=== PATIENT | female | born 1955 | race Caucasian/White ===

== ENCOUNTER 2022-09-13 12:17 | Day surgery (SDC) | payer OTHER, MEDICARE, SELFPAY ==
[2022-09-06 10:39] VITALS: BMI 24.3
[2022-09-13] VITALS (11 sets, daily range): BP systolic 116–147; BP diastolic 79–93; PULSE 58–78; RESP 16–19; TEMP 35.9–37.2; O2SAT 95–100; BMI 23.9
--- NOTE | 2022-09-13 06:39 | DI.RAD.S_ITS ---
PROCEDURE: XR HIP W PEL IF DONE LT 2V INDICATIONS: INNER OP TECHNIQUE: 2 view(s) of the hip acquired. COMPARISON: None. FINDINGS: Bones: Patient is status post left hip arthroplasty, with hardware components in expected positions. The hip joint appears congruent. The visualized bony structures appear intact. Soft tissues: Overlying postoperative changes are noted. No suspicious soft tissue densities. IMPRESSION: Expected intraoperative postsurgical change for left hip arthroplasty. Dictated by: Tawny Ernandez MD, PhD on 09/13/2022 at 16:20 Approved by: Tawny Ernandez MD, PhD on 09/13/2022 at 16:21
[2022-09-13] MEDS: ACETAMINOPHEN 325 MG TABLET 975 MG PO (12:51)
[2022-09-13] MEDS: LACTATED RINGERS 1,000 ML 42 ML IV (13:11)
[2022-09-13 13:18] LABS: COVID19 -Nasal RAPID Negative (Negative)
[2022-09-13] MEDS: VANCOMYCIN 1,000 MG/200 ML PIGGYBACK 200 MG IV (13:34)
--- NOTE | 2022-09-13 13:46 | PM.PREOP ---
Pre-operative Note Interval Note History & Physical reviewed/Exam performed by Physician: Yes Changes to H&P: No
--- NOTE | 2022-09-13 13:47 | P.OP_ITS ---
Operative Date/Time/Diagnoses Date of procedure: 09/13/22 Time of procedure: 14:00 Pre-op diagnosis: left hip OA Post-op diagnosis: same Procedure & Clinicians Procedure: left total hip arthroplasty anterior approach Same procedure as scheduled: Yes Indications: The patient has had progressively worsening left hip pain with radiographic ch anges consistent with arthritis. Non-operative management has failed and the patient has requested total hip replacement. The risks, benefits and alternatives to surgery were discussed with the patient prior to proceeding. Risks discussed included, but were not limited to, failure to relieve pain, leg length discrepancy, dislocation, stiffness, infection, nerve damage, deep venous thrombosis, pulmonary embolism, stroke, coma, heart attack, permanent paralysis and , as well as the potential need for eventual revision of the prosthetic. Surgeon: Alicia Hunter Guidance Services Coordinator: Maddy Magallon Anesthesia Type: General and Spinal Operative Notes Findings: severe left hip osteoarthritis, adequate stability Closure Type: primary Specimen(s): none sent Prosthetic devices, grafts, tissues, transplants, or devices: Hunter and nephew anthology standard offset Size 4, 52 mm cup, neutral poly liner 52 x 36, 36+ 0 Oxinium femoral head, one 6.5 mm screw Estimated Blood Loss (mL): 250 Blood products transfused: none Procedure in detail: The patient was brought to the operating room. Patient was carefully positioned in the supine position. Time-out was performed and antibiotics were given. Anesthesia was induced. She was positioned in the on the table in order to allow hyperextension of the hip. The left lower extremity was prepped and draped in a standard sterile fashion. An anterior left hip incision was made 1 fingerbreadth lateral to the anterior superior iliac spine and extended distally towards the greater trochanter. Dissection was carried out through skin and subcutaneous tissues. Superficial hemostasis was achieved. The fascia over the tensor fascia sammie was defined and incised with a knife. Two Allis clamps were used to grasp the fascia. Tensor fascia sammie was retracted laterally. A gelpi retractor was placed. Dissection was carried out down along the neck. The circumflex vessels were carefully identified and cauterized with the Aqua Mantis. There was good visualization of the femoral neck. A Cobra was placed superior to the neck and the gluteus fibers were carefully stripped from that superior aspect of the capsule. A 2nd retractor was placed along the inferior aspect of the neck. The rectus insertion along the capsule was partially released. A 3rd retractor that was then gently placed over the rim of the acetabulum under the rectus. Capsule was carefully incised and released from the intertrochanteric line circumferentially superior to the mid sagittal line and inferiorly to the mid sagittal line until the lesser trochanter was palpable. A tag stitch was placed both in the superior and inferior limb of the capsular insertion. Along the acetabulum capsule was also released up to the mid sagittal 12:00 position. A portion of the labrum was resected. A saw was used to perform an osteotomy at the level of the intertrochanteric line and the junction of the superior femoral neck leaving approximately 1 finger breath of residual inferior neck above the lesser trochanter. A 2nd cut was made along the femoral neck at the base of the head and a napkin ring of neck was removed. Corkscrew was placed in the femoral head and the head was removed without difficulty. Retractors were then repositioned around the acetabulum. Residual labrum was resected and additional osteophytes were removed. A reamer that was 4 mm below the templated size was placed by hand in the acetabulum and it was reamed to centralize the acetabulum. It was then reamed up to 2 under the templated size and fluoroscopy was brought in to confirm the position of the reaming and depth of reaming. I reamed 1 under the anticipated size. A trial cup was placed and noted that it was appropriately sized and fluoroscopy confirmed position and depth. The component was open and inserted without difficulty fluoroscopic imaging was used to confirm that the cup had been adequately seated and was well positioned. it was further stabilized with a single screw. Neutral poly liner was placed. The cup was tested and noted to be stable. Attention was then directed to the femur. The femur was gently hyperextended additional capsular release was performed as needed in order to allow adequate visualization of the proximal femur with elevation of the femur. Patient was placed in a hyperextended slightly adducted position with maximum external rotation. Box osteotome was used to check for any residual neck as well as scle rotic bone along the trochanter. [place] pepper was placed in the femur. Additional broaching was performed. Canal finder was used to determine the alignment of the canal and position. Size 1 broach was placed. The canal was then appropriately broached up to the templated size as long as there was adequate stability of the broach and serial advancement of the broach without excessive impingement. Specific attention was directed at avoiding varus attempting to direct the distal aspect of the broach more anteriorly and avoiding excessive anteversion. Trial reduction showed acceptable range of mot ion, good stability, no posterior impingement, religious of leg length and appropriate lateral shuck. I also hyperflexed the hip and checked that there was no impingement anteriorly and there was good stability with flexion, adduction and internal rotation. Marcaine and Exparel were injected. The stem was placed without difficulty. Repeat trial reduction and x-ray showed acceptable overall position, length, and no evidence of the femoral fracture. Final head was placed. Wound was meticulously irrigated with normal saline. The hip was reduced and additional Exparel and Marcaine were injected. The capsule was closed with interrupted nonabsorbable sutures. The fascia of the tensor was closed with interrupted and running Vicryl. No drain was placed. Any tensor fascia sammie muscle that appeared to be contused or injured which was a minimal amount was carefully resected. Capsule around the tensor was injected with Exparel and Marcaine. The skin was closed with barbed stitches for the subcutaneous tissue and skin. We also used surgical glue. The wound was dressed sterilely. Brief Betadine soak was also used and was meticulously irrigated with normal saline. Patient was transferred to recovery room in satisfactory condition. Complications: none Post-operative Condition: stable Disposition: Acute Care Plan for aftercare: The patient will be maintained on a standard total hip replacement protocol with weight bearing as tolerated and anterior hip precautions. The patient will receive Aspirin and sequential compression devices for DVT prophylaxis. The patient will be discharged home when safe for the home environment.
[2022-09-13] MEDS: CEFAZOLIN 2 GM/100 ML PREMIX 100 ML IV ×2 (13:49→22:22)
[2022-09-13] MEDS: TRANEXAMIC ACID 1,000 MG VIAL 2000 MG INJ ×2 (14:15→15:40)
--- NOTE | 2022-09-13 14:30 | SUR.OPER ---
Supine on padded [place] table with bilateral legs secured in padded positioning boots and suspended in positioning spars, operative leg in traction per surgeon. Head on one pillow. Arm on non-operative side secured on padded armboard <90 degrees abduction. Arm on operative side padded and resting across chest then secured with tape over sheet. Padded perineal post in place per surgeon.
[2022-09-13] MEDS: BUPIVACAINE LIPOSOME 266 MG/20 ML VIAL INJ (14:39)
[2022-09-13] MEDS: BUPIVACAINE 0.25% (PF) 60 ML, EPINEPHrine 0.3 MG INJ (14:39)
--- NOTE | 2022-09-13 16:22 | DI.RAD.S_ITS ---
PROCEDURE: XR HIP W PEL IF DONE LT 2V INDICATIONS: LEFT ANTERIOR TOTAL HIP TECHNIQUE: 2 view(s) of the hip acquired. COMPARISON: [facility], CR, XR HIP W PEL IF DONE LT 2V, 09/13/2022, 14:58. [facility], CR, XR PELVIS WITH BILATERAL LATERAL HIPS, 09/02/2022, 11:12. FINDINGS: Bones: Patient is status post left hip arthroplasty, with hardware components in expected positions. The hip joint appears congruent. The visualized bony structures appear intact. Stable right hip arthroplasty. Soft tissues: Overlying postoperative changes are noted. No suspicious soft tissue densities. IMPRESSION: Postoperative changes demonstrating left hip arthroplasty. Dictated by: Michelle Graves M.D. on 09/13/2022 at 17:21 Approved by: Michelle Graves M.D. on 09/13/2022 at 17:22
[2022-09-13] MEDS: OXYCODONE/ACETAMINOPHEN 5/325 TABLET 1 TAB PO (16:49)
[2022-09-13] MEDS: IBUPROFEN 400 MG TABLET PO (20:19)
[2022-09-13] MEDS: clonazePAM 0.5 MG TABLET 1 MG PO (20:19)
[2022-09-13] MEDS: DOCUSATE 100 MG CAPSULE PO (20:20)
[2022-09-13] MEDS: OXYCODONE IR 5 MG TABLET PO (20:20)
[2022-09-13] MEDS: ASPIRIN EC 81 MG TABLET PO (20:20)
[2022-09-13] MEDS: ACETAMINOPHEN 325 MG TABLET 650 MG PO (20:20)
[2022-09-13] MEDS: LACTATED RINGERS 1,000 ML 100 ML IV (20:30)
[2022-09-14] VITALS: BP 108/66; PULSE 67; RESP 18; TEMP 36.3; O2SAT 98
[2022-09-14] MEDS: OXYCODONE IR 5 MG TABLET PO ×3 (01:28→08:46)
[2022-09-14] MEDS: IBUPROFEN 400 MG TABLET PO ×3 (01:28→08:50)
[2022-09-14 04:00] VITALS: BP 106/58; PULSE 69; RESP 17; TEMP 36.4; O2SAT 97
[2022-09-14] MEDS: ACETAMINOPHEN 325 MG TABLET 650 MG PO (05:23)
[2022-09-14] MEDS: CEFAZOLIN 2 GM/100 ML PREMIX 100 ML IV (05:25)
[2022-09-14 05:47] LABS: Hematocrit 36.3 % (36-46); Hemoglobin 12.5 g/dL (12.0-16.0)
--- NOTE | 2022-09-14 07:04 | P.DS_ITS ---
History of Present Illness History of Present Illness Date Patient Seen: 09/14/22 Time Patient Seen: 07:04 Chief complaint: DELANO Anterior 09/13 Narrative: Operative Date/Time/Diagnoses Date of procedure: 09/13/22 Time of procedure: 14:00 Pre-op diagnosis: left hip OA Post-op diagnosis: same Procedure & Clinicians Procedure: ?left total hip arthroplasty anterior approach Same procedure as scheduled: Yes Indications: ?The patient has had progressively worsening left hip pain with radiographic changes consistent with arthritis. Non-operative management has failed and the patient has requested total hip replacement. The risks, benefits and alternatives to surgery were discussed with the patient prior to proceeding. Risks discussed included, but were not limited to, failure to relieve pain, leg length discrepancy, dislocation, stiffness, infection, nerve damage, deep venous thrombosis, pulmonary embolism, stroke, coma, heart attack, permanent paralysis and , as well as the potential need for eventual revision of the prosthetic. Surgeon: Alicia Hunter Needle Loom Tender: Maddy Magallon Anesthesia Type: General and Spinal Operative Notes Findings: ?severe left hip osteoarthritis, adequate stability Closure Type: primary Specimen(s): none sent Prosthetic devices, grafts, tissues, transplants, or devices: ?Hunter and nephew anthology standard offset ? Size 4, ? 52 mm cup, neutral poly liner 52 x 36, 36+ 0 Oxinium femoral head,? one? 6.5 mm screw Estimated Blood Loss (mL): 250 Blood products transfused: none Discharge Providers Provider Discharge Date: 09/14/22 Primary care physician: Lasha Smith DO, MS Consults: 06/15/22 09:35 Consult to Pastoral Services Routine Comment: Pt would like a visit 09/13/22 06:39 Consult to Anesthesiology Routine Comment: Consulting Provider: Anesthesiologist Reason for consultation: Regional block for post operative pain control 09/13/22 16:54 Consult to Discharge Planning Routine Comment: Consult to Physical Therapy Evaluate & Treat Comment: Physician Instructions: post op DELANO protocol Discharge provider: Veronica Mcgregor PA-C Summary Hospital Course Discharge Diagnosis: Left hip osteoarthritis, s/p left total hip arthroplasty Hospital Course: Ms Palumbo's hospital course was unremarkable. On the morning of POD# 1, she was feeling well and wanted to go home. She was eating and voiding without difficulty. She had not yet been evaluated by PT. Her pain was well-contolled with oral medication including oxycodone, but she wanted hydromorphone for discharge. Exam Vital Signs (past 8 hours): - 09/14/22 00:00 09/14/22 04:00 Temperature 97.3 F L 97.6 F Pulse Rate 67 69 Respiratory Rate 18 17 Blood Pressure 108/66 106/58 L Pulse Oximetry 98 97 Oxygen Flow Rate 0 Oxygen Delivery Method Nasal Cannula Oxygen Flow Rate 0 Narrative Exam Narrative: 5/5 strength in hip flexors, quadriceps, hamstrings, DF, PF, EHL on left. Sensation to light touch intact throughout LLE. Calves soft, compressible, nontender and without palpable cords or masses. Aquacel dressing CDI. Objective Labs 09/14/22 05:19 Labs: Laboratory Results - last 24 hr 09/13/22 09/14/22 12:39 05:19 Hgb 12.5 Hct 36.3 SARS-CoV-2 (PCR) Negative PFSH Medical History (Updated 06/15/22 @ 09:34 by Mihaela De Jesus RN) ADHD Anesthesia Breast cancer, right (~09/2021) Depression Difficult intravenous access DJD (degenerative joint disease) Hearing impaired Hepatitis C HLD (hyperlipidemia) HTN (hypertension) Mental health problem OCD (obsessive compulsive disorder) Scoliosis Sleep apnea Surgical History (Updated 06/15/22 @ 09:18 by Mihaela De Jesus RN) History of surgery History of total replacement of right hip (~2016) Hx of tonsillectomy Status post trigger finger release (02/14/22) Social History household members: spouse Smoking Status: Former smoker alcohol intake: former Discharge Assessment & Plan Assessment and Plan Assessment: Left hip osteoarthritis, s/p left total hip arthroplasty Plan of Treatment: Discharge home, multimodal pain control, ASA BID x 6 weeks for VTE prophylaxis, outpt PT, f/u in office in 2 weeks. Pt received #30 hydromorphone 2mg on 09/03/2022 from our office; will send another #30 for discharge. Discharge Plan Discharge Plan Patient Disposition: Home Discharge orders & Medications Discharge Orders: Discharge (Order); Ordered 09/14/22 Ordered By: Veronica Mcgregor Prescriptions: New hydromorphone 2 mg tablet 2 mg PO Q4-6H PRN (Reason: pain (scale score 7-10)) Qty: 30 0RF Continued atorvastatin 40 mg Tablet 40 mg PO DAILY lamotrigine 150 mg Tablet 300 mg PO DAILY anastrozole 1 mg Tablet 1 mg PO DAILY metoprolol succinate 50 mg Tablet Extended Release 24 Hr 50 mg PO DAILY clonazepam 1 mg Tablet 1 mg PO TID PRN (Reason: anxiety, panic attacks) aspirin [Aspir-81] 81 mg Tablet,Delayed Release (Dr/Ec) 81 mg PO DAILY dextroamphetamine-amphetamine [Adderall] 30 mg Tablet 30 mg PO DAILY Rx Instructions: states has been taking 20mg because of nation shortage atomoxetine 18 mg Capsule 18 mg PO QAM Follow up/Referrals: Lasha Smith DO, MS [Primary Care Provider] - Alicia Hunter MD [Physician] - As previously scheduled (Follow up w/ Dr Hunter on 09/29/2022 @ 11:00 am at [facility] office in [place].) Diet/Activity/Treatments Diet: Diet as Tolerated Activity: Weightbearing as tolerated to left leg. Anterior hip precautions. Cold/Heat Therapy: Ice to hip as needed for pain. Skin/Wound/Dressing Care Report to your healthcare provider any signs of infection, such as:: chills, fever, night sweats, unusual drainage and unusual redness Dressing: May shower. Leave Aquacel dressing in place until follow up in office. No bathing or otherwise soaking incision. Call the office if the dressing becomes saturated inside. Visit Report/Discharge Packet Instructions: DI for Hip Replacement Stand Alone Forms: Patient Portal/API, Surgery Discharge Discharge Data Primary Care Provider: Lasha Smith Attending Provider: Alicia Hunter Quality VTE Deep Vein Thrombosis/Pulmonary Embolism Present on Admission: No
[2022-09-14 08:38] VITALS: BP 98/59; PULSE 70; RESP 16; TEMP 36.3; O2SAT 95
[2022-09-14] MEDS: ANASTROZOLE 1 MG TABLET PO (08:44)
[2022-09-14] MEDS: clonazePAM 0.5 MG TABLET 1 MG PO (08:48)
--- NOTE | 2022-09-14 08:58 | PT.OIE ---
Current Diagnoses Unilateral primary osteoarthritis, left hip (09/13/22) Past Medical History (Last Updated 06/15/22 @ 09:34 by Mihaela De Jesus RN) ADHD Anesthesia Breast cancer, right (~09/2021) Depression Difficult intravenous access DJD (degenerative joint disease) Hearing impaired Hepatitis C HLD (hyperlipidemia) HTN (hypertension) Mental health problem OCD (obsessive compulsive disorder) Scoliosis Sleep apnea Past Surgical History (Last Updated 06/15/22 @ 09:18 by Mihaela De Jesus RN) History of surgery History of total replacement of right hip (~2016) Hx of tonsillectomy Status post trigger finger release (02/14/22) Visit Care Team Role Provider Type Lasha Smith DO, MS Primary Care Provider Non-Staff Referring Provider Specialty: Medical Address: [address] [place] [address], [id number] Email: Daniel Yarbrough DO Other Providers Physician Specialty: Anesthesiology Address: [address] [place] [address], [id number] Email: Tacho Leong MD Other Providers Physician Specialty: Anesthesiology Address: [address] [place] [address], [id number] Email: Rafy Chaudhari MD Other Providers Physician Specialty: Anesthesiology Address: [address] [place] [address], [id number] Phone: Fax: Email: [email or web address] Delaney Villeda MD Other Providers Physician Specialty: Anesthesiology Address: [address] [place] [address], [address] Phone: Fax: Email: Nguyễn Head MD Other Providers Physician Specialty: Anesthesiology Address: [address] [place] [address], [id number] Email: Robert Shea MD Other Providers Physician Specialty: Anesthesiology Address: [address] [place] [address], [id number] Email: Mihaela Anderson MD Other Providers Physician Specialty: Anesthesiology Address: [address] [place] [address], [id number] Email: Maddy Gray MD Other Providers Physician Specialty: Anesthesiology Address: Phone: Fax: Email: [email or web address] Oumou Skelton MD Other Providers Physician Specialty: Anesthesiology Address: [address] [place] [address], [facility] Email: Peterson Mtz MD Other Providers Physician Specialty: Anesthesiology Address: [address] [place] [address], [id number] Email: Alicia Hunter MD Attending Provider Physician Specialty: Orthopedics Orthopedic Surgery Address: [address] [place] [address], [id number] Email: [email or web address]
--- NOTE | 2022-09-14 08:58 | PT.IIE ---
Current Diagnoses Unilateral primary osteoarthritis, left hip (09/13/22) Surgery Performed Operation Date: 09/13/22 14:15 Actual Procedures p Total Hip Arthroplasty/Anterior Approach(Left) - Alicia Hunter MD Surgical History (Last Updated 06/15/22 @ 09:18 by Mihaela De Jesus, RN) History of surgery History of total replacement of right hip (~2016) Hx of tonsillectomy Status post trigger finger release (02/14/22) Medical History (Last Updated 06/15/22 @ 09:34 by Mihaela De Jesus RN) ADHD Anesthesia Breast cancer, right (~09/2021) Depression Difficult intravenous access DJD (degenerative joint disease) Hearing impaired Hepatitis C HLD (hyperlipidemia) HTN (hypertension) Mental health problem OCD (obsessive compulsive disorder) Scoliosis Sleep apnea Physical Therapy Inpatient Evaluation/Re-Eval M1 PT/OT-IP Prior Functional Status Start: 09/14/22 08:00 Freq: NEEDED Status: Active Protocol: Document 09/14/22 08:45 SAK (Rec: 09/14/22 08:57 [facility] [id number]) Medical Review Prior Functional Status Medical History Reviewed Yes Diet/Fluid Consistency Regular Communication no difficulty Mobility and Gait painful left hip Activities of Daily Living and IADL's assist Social History Household Members spouse Living Arrangements House Number of Floors (Floors) One Floor Number of Stairs To Enter/Railing? 1 Home Environment Standard Height Toilet,Tub/ Shower Home Equipment Front Wheel Walker,Straight Cane,Shower Seat with Backrest Employment Status Unknown M2 PT-IP Current Condition Start: 09/14/22 08:00 Freq: NEEDED Status: Active Protocol: Document 09/14/22 08:45 SAK (Rec: 09/14/22 08:57 [facility] [id number]) Physical Therapy Current Condition Current Condition Evaluation Date 09/14/22 Treatment Diagnosis s/p left anterior DELANO Onset Date 09/13/22 M3 PT-IP Subjective Start: 09/14/22 08:00 Freq: NEEDED Status: Active Protocol: Document 09/14/22 08:45 SAK (Rec: 09/14/22 08:57 [facility] [id number]) Subjective Physical Therapy Visit Type Type Initial Evaluation Visit Start Time 08:13 Visit Stop Time 08:45 Total Visit Minutes 32 Physical Therapy Visit Comments Patient Comments Patient receptive to PT, hoping to go home today. Prior right DELANO. to assist at home. Has outpatient scheduled for 6 weeks Patient Goals be discharged home Therapy Pain Assessment Pain When Pain Assessed At Rest Pain Present Pain Present Pain Reported Location Left Knee Intensity 5 Description Aching,Tingling Pain Management Techniques Apply Cold,Distraction,Timing of Activity with Medications M4 PT-IP Mobility and Gait Start: 09/14/22 08:00 Freq: NEEDED Status: Active Protocol: Document 09/14/22 08:45 [facility] (Rec: 09/14/22 08:57 [facility] [id number]) PT-Bed Mobility Assessment Supine to Sit Supine to Sit Standby Assistance Sit to Supine Sit to Supine Standby Assistance Scooting Scooting to Edge of Bed Independent PT-Transfer Assessment Sit to and From Stand Sit to and from Stand Standby Assistance Equipment Transfer Assistive Device Gait Belt,Front Wheeled Walker Transfers Transfer Destination Chair Transfer Technique ambulated in room then sat in chair Transfer Ability Level of Assist Standby Assistance Comments Mobility Comments cues for safe hand placement, left LE forward to decrease use of left LE first few days Gait Assessment Gait Gait Assistance Required: Standby Assistance Distance (Feet) 60 Able to Maintain Weight Bearing Status Yes During Gait Assistive Devices Assistive Device Gait Belt,Front Wheeled Walker Orthotic/Prosthetic Devices or Brace: No Gait Deviations General Gait Pattern Antalgic,Flexed Trunk Factors Limiting Gait Function Factors Limiting Gait Function Decreased Strength,Pain Comments Gait Comments steppage gait left due to lack of active dorsiflexion Stair Climbing Assessment Evaluation Level of Assist On Stairs Standby Assistance,1 Person Assistance Devices Stair Climbing Assistive Devices Front Wheel Walker Technique/Endurance Stair Climbing Direction Ascend and Descend Stair Climbing Technique Step to Step Number of Steps Climbed 1 Query Text: Stair Climbing Set # Repetitions (reps) 2 Comments Stair Climbing Comments cues for up first with right, down first with left. Demonstrated good understanding PT-Balance Assessment Sitting Balance and Reactions Static Sitting Balance Ability Normal Dynamic Sitting Balance Ability Good Standing Balance and Reactions Static Standing Balance Ability Good Dynamic Standing Balance Ability Good Device Used FWW M5 PT-IP Objective Assessments Start: 09/14/22 08:00 Freq: NEEDED Status: Active Protocol: Document 09/14/22 08:45 SAK (Rec: 09/14/22 08:57 [facility] [id number]) Orientation Orientation/Cognition Level of Alertness Alert Orientation Name,Place,Situation Safety Awareness Understands Safety Issues Memory Description No Deficits Noted Gross Range of Motion Upper Extremity ROM Assessment Within Functional Limits Lower Extremity ROM Assessment Within Functional Limits Strength Lower Extremity Strength Hip right WFL Knee right WFL Ankle right WFL Comments Strength Comments Left LE: able to perform heelslide independently, good gluteal and quad contraction. Ankle dorsiflexion left 1/5, states was able to do prior to surgery Sensation Assessment Sensation Gross Sensation Left LE Impaired Sensation Description Tingling M6 PT-IP Treatment Start: 09/14/22 08:00 Freq: NEEDED Status: Active Protocol: Document 09/14/22 08:45 SAK (Rec: 09/14/22 08:57 [facility] [id number]) Physical Therapy Treatment Exercises Exercises Ankle Pumps,Gluteal Sets,Quad Sets,Heel Slides Education Education Provided Precautions,Weight Bearing Status,Post-Op Packet,Safety M7 PT-IP Assessment and Plan Start: 09/14/22 08:00 Freq: NEEDED Status: Active Protocol: Document 09/14/22 08:45 SAK (Rec: 09/14/22 08:57 [facility] [id number]) PT Summary Assessment and Plan Potential Rehabilitation Potential Good Status of Condition at Evaluation Evolving Summary Impairments Pain,Strength Progress Towards Goals Safe For Discharge Assessment Summary Patient s/p left anterior DELANO 09/13/22. Doing well post-op except for left ankle dorsiflexion lacking, steppage gait on left. Was able to perform bed mobility, transfers, and gait with SBA with cues for safety. Reviewed precautions and safety with patient demonstrating good understanding. She is safe with mobility and approved for discharge home but PT concerned about ankle dorsiflexion weakness. Notified RN of weakness in ankle dorsiflexion and she will call physician. Goals Bed Mobility Goal Independent Transfer Goal Independent Gait Goal Independent Gait Distance 100 Days to Meet Goals 2 Frequency of Treatment Frequency Of Treatment Twice a Day Treatment Plan Physical Therapy Treatment Plan Bed Mobility Training,Transfer Training,Gait Training, Therapeutic Exercise,Discharge Planning Weight Bearing Status Weight Bearing Status Weight Bear as Tolerated Recommendations To Nursing Amount of Assist Needed 1 Person Assist Discharge Recommendations PT Discharge Recommendations Home with Assistance Transportation Needs at Discharge Private Vehicle
[2022-09-14 09:11] VITALS: BP 98/59; PULSE 70
--- NOTE | 2022-09-14 10:32 | PC.NURSE ---
Pt had assistance getting dressed by LUBRICATING SPECIALIST and IV is out. Pt worked with PT and PT noticed that pt was not displaying L foot dorsal flexion. Called PA to report PT finding to double check that pt is still able to d/c today, and PA okayed. Pt's spouse was called to p/u pt @ 1000. Reviewed paperwork. Pt had no concerns/questions. Pt left unit @ 1018 with all belongings escorted by RN via wheelchair to [facility].
--- NOTE | 2022-09-14 10:44 | CM.DANOTE ---
Discharge Planning/Care Management CM Discharge Assessment Start: 09/14/22 10:38 Freq: Status: Discharge Protocol: Document 09/14/22 10:41 [facility] (Rec: 09/14/22 10:44 [facility] [id number]) Discharge Planning Assessment Assigned [employer] Manager JANET Camilo DPOA/Assigned Designee Name Rosario Palumbo, spouse Contact Information [phone] Advance Directives? No History Provided By Patient,Medical Record Prior Living Arrangements House Household Members spouse Type of transporation used prior to Drives own vehicle admit Independent with ADL's Yes Is patient alert and oriented? Yes Patient/Family Preference OP PT Therapy Barriers to Discharge No Comment Patient is POD1 from Total Hip Arthroplasty/Anterior Approach(Left) - Alicia Hunter MD Patient planned for return home w/spouse and therapy has cleared patient for this plan No CM needs identified, home w /spouse outpatient follow up Discharge Plan Home Transportation Arrangement Spouse Referrals Initiated None needed
== END 2022-09-14 10:18 | disposition home or self-care (01) ==
LOC: OR 12:24 → AC 12:26
PROVIDERS: PCP Student in an Organized Health Care Education/Training Program; Referring Provider Student in an Organized Health Care Education/Training Program; Visit Provider Orthopaedic Surgery
PROC: (CPT 27130; principal; 2022-09-13 14:15)
DX: M16.12 Unilateral primary osteoarthritis, left hip (principal); I10 Essential (primary) hypertension; Z20.822 Contact with and (suspected) exposure to COVID-19
CPT/HCPCS: 27130; 36415; 73502; 76000; 85014; 85018; 87635; 97162; 97535; C1776; C9803; C9290; J0171; J0690; J1100; J2250; J2405; J2704; J3010